=== PATIENT | male | born 1965 | race African-American/Black ===

== ENCOUNTER 2017-01-27 11:53 | Emergency (ER) | payer OTHER ==
[~2017-01-27] VITALS: Ht 177.8 cm; Wt 115.0 kg
[~2017-01-27 11:53] MED LIST: DICL50 PO
[2017-01-27 12:03] VITALS: BP 189/100; PULSE 72; RESP 18; O2SAT 100
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
[2017-01-27] MEDS ORDERED: ONDANSETRON HCL 4 MG/2 ML VIAL IV PUSH ONE (12:15)
[2017-01-27] MEDS ORDERED: MORPHINE SULFATE 8 MG/ML INJ IV PUSH ONE (12:15)
[2017-01-27 12:25] VITALS: BP 164/96; PULSE 74; RESP 20; TEMP 98.2; O2SAT 96
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
[2017-01-27] MEDS ORDERED: CYCL5TAB PO (14:16)
[2017-01-27] MEDS ORDERED: IBUP-232 PO (14:16)
[2017-01-27 14:36] VITALS: BP 161/88
== END 2017-01-27 14:38 | disposition home or self-care (01) ==
LOC: NEPC 11:53
DX: M25.511 Pain in right shoulder (principal); M25.521 Pain in right elbow; M54.6 Pain in thoracic spine; S80.211A Abrasion, right knee, initial encounter; V28.4XXA Motorcycle driver injured in noncollision transport accident in traffic accident, initial encounter
CPT/HCPCS: 70450; 71010; 72125; 72128; 72170; 73030; 73080; 96374; 96375; 99285; J2270; J2405